=== PATIENT | female | born 1945 | race Caucasian/White ===

== ENCOUNTER 2018-09-07 18:37 | Emergency (ER) | payer OTHER ==
[~2018-09-07] VITALS: Wt 55.8 kg
[2018-09-07 19:10] VITALS: BP 137/72; PULSE 67; RESP 18
[2018-09-07] MEDS ORDERED: KETOROLAC 60 MG INJ IM STA (21:25)
[2018-09-07] MEDS ORDERED: TRAM50TA2 PO (22:56)
[2018-09-07] MEDS ORDERED: ACET325T33 PO (22:56)
--- NOTE | 2018-09-07 23:13 | ERD ---
ER Documentation Chief Complaint Chief Complaint C/O BACK PAIN S/P RIDING ROLLER COASTER 2 DAYS AGO HPI 73-year-old female presenting with back pain after she rode a roller coaster 2 days ago. Patient states it hurts when she walks but she has no numbness or tingling to her lower extremities. She has not taken medications. She denies any changes in urination or bowel movement. Medical history is diabetes. NKDA. Surgical history denies. Social history denies ROS All systems reviewed and are negative except as per history of present illness. Medications Home Meds Active Scripts Acetaminophen* (Tylenol*) 325 Mg Tablet, 2 TAB PO Q8 PRN for PAIN AND OR ELEVATED TEMP, #20 TAB Prov:PAT PALACIOS PA-C 09/07/18 Tramadol HCl (Tramadol HCl) 50 Mg Tablet, 50 MG PO Q4 PRN for PAIN, #10 TAB Prov:PAT PALACIOS PA-C 09/07/18 PMhx/Soc Medical and Surgical Hx: pt denies Medical Hx, pt denies Surgical Hx Hx Alcohol Use: No Hx Substance Use: No Hx Tobacco Use: No Smoking Status: Never smoker FmHx Family History: No diabetes, No coronary disease, No other Physical Exam Vitals Vital Signs Date Temp Pulse Resp B/P (MAP) Pulse Ox O2 O2 Flow FiO2 Time Delivery Rate 09/07/18 98.5 67 18 137/72 98 19:10 (93) Physical Exam GENERAL: The patient is well-appearing, well-nourished, in no acute distress CHEST: Clear to auscultation bilaterally. There are no rales, wheezes or rhonchi. HEART: Regular rate and rhythm. No murmurs, clicks, rubs or gallops. No S3 or S4. BACK: No midline or flank tenderness. Generalized tenderness to palpation in the lumbar spine. EXTREMITIES: Equal pulses bilaterally. There is no peripheral clubbing, cyanosis or edema. No focal swelling or erythema. Full range of motion. Grossly neurovascularly intact. NEUROLOGIC: Alert and oriented. Cranial nerves II through XII intact. Motor strength in all 4 extremities with 5 out of 5 strength. Sensation grossly intact. Normal speech and gait. SKIN: There is no apparent rash or petechiae. The skin is warm and dry. Results 24 hrs Current Medications Medications Dose Sig/Faviola Start Time Status Last (Trade) Ordered Route PRN Stop Time Admin Dose Reason Admin Ketorolac 60 mg ONCE STAT 09/07/18 DC 09/07/18 Tromethamine IM 21:25 21:36 (Toradol) 09/07/18 21:28 Procedures/MDM DIAGNOSTIC IMAGING REPORT Patient: LYRIC BLACKBURN : 1945 Age: 73 Sex: F MR #: [id number] DOS: 09/07/182124 Ordering MD: YURIDIA PALACIOS PA-C Location: [facility] Room/Bed: PROCEDURE: XR Lumbar Spine. CLINICAL INDICATION: back pain TECHNIQUE: AP, lateral and cone-down lateral view of the lumbar spine were obtained. COMPARISON: No prior studies are available for comparison. FINDINGS: Diffuse osteopenia is noted. Mild compression deformity is seen at the L3 vertebral body, with approximately 20% height loss. Cortical irregularity along the anterior superior endplate is noted. Lumbar vertebral bodies are otherwise normal in height and alignment. Mild scattered endplate osteophytosis noted. Posterior elements are intact. Disc spaces are preserved. Postsurgical clips are seen in the right upper abdominal quadrant. Remaining soft tissues are unremarkable. IMPRESSION: Cortical irregularity along the anterior superior endplate of the L3 vertebral body, with mild height loss, worrisome for age indeterminate compression fracture. Recommend CT or MRI to further evaluate. Mild lumbar degenerative changes. ER Course: Toradol given ED. MDM: 73-year-old female presenting with back pain. Patient may have chronic vertebral shortening or could have small compression fracture however there is no neuro deficit noted to the lower extremities. Patient is recommended follow- up with primary doctor and obtain review with orthopedic surgeon. This case was discussed with Dr. Mireles prior to discharge. Patient has no urinary or changes in bowel movement. She is told symptoms change or worsen to return immediately to the ER. All questions answered at discharge Departure Diagnosis: Primary Impression: Back pain Condition: Stable Patient Instructions: Back Pain (Acute Or Chronic) Referrals: [facility] YOU HAVE RECEIVED A MEDICAL SCREENING EXAM AND THE RESULTS INDICATE THAT YOU DO NOT HAVE A CONDITION THAT REQUIRES URGENT TREATMENT IN THE EMERGENCY DEPARTMENT. FURTHER EVALUATION AND TREATMENT OF YOUR CONDITION CAN WAIT UNTIL YOU ARE SEEN IN YOUR DOCTORS OFFICE WITHIN THE NEXT 1-2 DAYS. IT IS YOUR RESPONSIBILITY TO MAKE AN APPOINTMENT FOR FOLOW-UP CARE. IF YOU HAVE A PRIMARY DOCTOR --you should call your primary doctor and schedule an appointment IF YOU DO NOT HAVE A PRIMARY DOCTOR YOU CAN CALL OUR PHYSICIAN REFERRAL HOTLINE AT IF YOU CAN NOT AFFORD TO SEE A PHYSICIAN YOU CAN CHOSE FROM THE FOLLOWING [facility] [address] [facility] [address] [facility] [address] [facility] [address] [facility] [address] [facility] [address]. [facility]. [address] Additional Instructions: FOLLOW UP WITH YOUR PRIMARY CARE PHYSICIAN TOMORROW.Return to this facility if you are not improving as expected. PAT PALACIOS PA-C Sep 07, 2018 23:13
== END 2018-09-07 23:05 | disposition home or self-care (01) ==
LOC: FTE 18:37
DX: M54.9 Dorsalgia, unspecified (principal)
CPT/HCPCS: 72100; 96372; J1885; Z7502